=== PATIENT | female | born 1985 | race Caucasian/White ===

== ENCOUNTER 2022-10-18 21:31 | Observation (INO) | payer MEDICAID ==
[~2022-10-18] VITALS: Ht 160 cm; Wt 78.5 kg
[2022-10-18] MEDS ORDERED: PREN1TAB23 PO (23:22)
[2022-10-19] MEDS ORDERED: LACTATED RINGERS 1,000 ML IV SCH (01:15)
[2022-10-19] MEDS ORDERED: LACTATED RINGERS 1,000 ML IV ONE (01:15)
== END 2022-10-19 04:20 | disposition home or self-care (01) ==
LOC: 8 EST LDRP 21:31
PROVIDERS: ADMIT Obstetrics & Gynecology; ATTEND Obstetrics & Gynecology
DX: O26.893 Other specified pregnancy related conditions, third trimester (principal); R10.9 Unspecified abdominal pain; O36.8130 Decreased fetal movements, third trimester, not applicable or unspecified; O62.9 Abnormality of forces of labor, unspecified; O99.891 Other specified diseases and conditions complicating pregnancy; M54.9 Dorsalgia, unspecified; Z3A.38 38 weeks gestation of pregnancy
CPT/HCPCS: 59025; 76805; 76818; G0378; 99281

== ENCOUNTER 2022-10-24 20:52 | Inpatient (IN) | payer MEDICAID ==
[~2022-10-24] VITALS: Ht 157.5 cm; Wt 78.9 kg
[~2022-10-24 20:52] MED LIST: PREN1TAB23 PO
[2022-10-24] MEDS ORDERED: METHYLERGONOVINE MALEATE 0.2 MG/ML IM PRN (22:15)
[2022-10-24] MEDS ORDERED: LIDOCAINE HCL 1% 20ML VIAL (Pyxis) INJ INFIL SCH (22:15)
[2022-10-24] MEDS ORDERED: NALOXONE HCL 0.4 MG/ML 1ML VIAL IM PRN (22:15)
[2022-10-24] MEDS ORDERED: BUTORPHANOL TARTRATE 2 MG/ML VIAL IV PRN (22:15)
[2022-10-24] MEDS ORDERED: OXYTOCIN 30 UNITS/500ML NS PMX 500 ML IV SCH (22:15)
[2022-10-24 23:11] LABS: *AMPHETAMINES SCREEN URINE NEGATIVE (NEGATIVE); *BARBITURATES SCREEN URINE NEGATIVE (NEGATIVE); *BENZODIAZEPINES SCREEN URINE NEGATIVE (NEGATIVE); *COCAINE SCREEN URINE NEGATIVE (NEGATIVE); CANNABINOID URINE SCREEN NEGATIVE (NEGATIVE); METHADONE URINE SCREEN NEGATIVE (NEGATIVE); OPIATES URINE SCREEN NEGATIVE (NEGATIVE); PHENCYCLIDINE URINE SCREEN NEGATIVE (NEGATIVE)
[2022-10-24 23:20] LABS: BASOPHILS % 0.4 % (0.0-2.0); EOSINOPHILS % 0.8 % (0.0-5.0); HEMATOCRIT. 36.3 % (36.0-48.0); HEMOGLOBIN. 12.3 g/dL (12.0-16.0); LYMPHOCYTES % 22.6 % (20.0-50.0); MEAN CORPUSCULAR HEMOGLOBIN 31.3 pg (28.0-32.0); MEAN CORPUSCULAR VOLUME 92.5 fL (81.0-99.0); MEAN PLATELET VOLUME 10.4 fl (7.4-10.4); MONOCYTES % 8.1 % (2.0-8.0); NEUTROPHILS % 68.1 % (40.0-76.0); PLATELET 207 x1000/uL (130-400); RED BLOOD CELL COUNT 3.92 mill/uL (4.2-5.4)
[2022-10-24 23:25] LABS: CLARITY URINE CLEAR (CLEAR); COLOR URINE YELLOW (YELLOW); KETONES URINE NEGATIVE (NEGATIVE); LEUKOCYTE ESTERASE URINE TRACE (NEGATIVE); NITRITE URINE NEGATIVE (NEGATIVE); OCCULT BLOOD URINE NEGATIVE (NEGATIVE); PROTEIN URINE NEGATIVE (NEGATIVE); SPECIFIC GRAVITY URINE 1.011 (1.005-1.030); UROBILINOGEN URINE 0.2 E.U./dL (0.2-1.0)
[2022-10-24] MEDS: LACTATED RINGERS 1,000 ML IV SCH (23:27)
[2022-10-24 23:39] LABS: HEPATITIS B SURFACE ANTIGEN NEGATIVE
[2022-10-25] MEDS: LACTATED RINGERS 1,000 ML IV SCH (01:40)
[2022-10-25] MEDS ORDERED: ROPIVACAINE HCL/PF EPIDURAL 200 ML EPI SCH (02:45)
[2022-10-25] MEDS ORDERED: IBUPROFEN 400MG TABLET PO PRN (03:30)
[2022-10-25] MEDS ORDERED: RHO(D) IMMUNE GLOBULIN 300 MCG/SYR IM PRN (03:30)
[2022-10-25] MEDS ORDERED: BENZOCAINE/LANOLIN/ALOE VERA SPRAY TOP PRN (03:30)
[2022-10-25] MEDS: IBUPROFEN 800MG TABLET PO PRN ×2 (04:21→20:35)
[2022-10-25 05:15] VITALS: BP 129/64
[2022-10-25 10:00] VITALS: BP 107/48
[2022-10-25 16:00] VITALS: BP 115/57
[2022-10-25] MEDS: PRENATAL VIT/FE FUMARATE/FA TABLET PO SCH (18:14)
[2022-10-25 19:15] VITALS: BP 119/67
[2022-10-26 02:45] VITALS: BP 107/48
[2022-10-26] MEDS: IBUPROFEN 800MG TABLET PO PRN ×2 (05:03→21:21)
[2022-10-26 07:26] LABS: BASOPHILS % 0.2 % (0.0-2.0); EOSINOPHILS % 0.9 % (0.0-5.0); HEMATOCRIT. 35.2 % (36.0-48.0); HEMOGLOBIN. 11.9 g/dL (12.0-16.0); LYMPHOCYTES % 23.3 % (20.0-50.0); MEAN CORPUSCULAR HEMOGLOBIN 31.3 pg (28.0-32.0); MEAN CORPUSCULAR VOLUME 92.5 fL (81.0-99.0); MEAN PLATELET VOLUME 10.5 fl (7.4-10.4); MONOCYTES % 6.4 % (2.0-8.0); NEUTROPHILS % 69.2 % (40.0-76.0); PLATELET 181 x1000/uL (130-400)
[2022-10-26 08:00] VITALS: BP 98/47
[2022-10-26] MEDS: FERROUS SULFATE 325MG TABLET PO SCH ×3 (08:59→16:44)
[2022-10-26] MEDS: PRENATAL VIT/FE FUMARATE/FA TABLET PO SCH (08:59)
[2022-10-26 16:00] VITALS: BP 120/61
[2022-10-26 20:00] VITALS: BP 112/56
[2022-10-27 04:00] VITALS: BP 101/56
[2022-10-27] MEDS: IBUPROFEN 800MG TABLET PO PRN (04:01)
[2022-10-27] MEDS: PRENATAL VIT/FE FUMARATE/FA TABLET PO SCH (08:19)
[2022-10-27] MEDS: FERROUS SULFATE 325MG TABLET PO SCH (08:19)
[2022-10-27 10:00] VITALS: BP 112/62
== END 2022-10-27 11:00 | disposition home or self-care (01) | DRG 560 ==
LOC: 8 EST LDRP 20:52 → OBSVTOIN 22:00 → 8EST 10-25 04:40
PROVIDERS: ADMIT Obstetrics & Gynecology; ATTEND Obstetrics & Gynecology
PROC: 10E0XZZ Delivery of Products of Conception, External Approach (ICD-10-PCS; principal; 2022-10-24)
PROC: 0HQ9XZZ Repair Perineum Skin, External Approach (ICD-10-PCS; 2022-10-24)
DX: O70.0 First degree perineal laceration during delivery (principal); Z37.0 Single live birth; Z20.822 Contact with and (suspected) exposure to COVID-19; Z3A.39 39 weeks gestation of pregnancy; Z82.49 Family history of ischemic heart disease and other diseases of the circulatory system; Z83.3 Family history of diabetes mellitus
CPT/HCPCS: 36415; 80305; 81003; 85025; 86592; 86703; 86762; 86850; 86900; 87340; 87426; 99281; G0378; J0595; J3490; J2590